=== PATIENT | male | born 1980 | race Asian ===

== ENCOUNTER → 2022-05-01 | Outpatient (CLI) | payer SELFPAY | END | disposition short-term general hospital (02) | LOC: EMS 11:14 | DX: R53.1 Weakness (principal); R47.02 Dysphasia; R11.2 Nausea with vomiting, unspecified; R51.9 Headache, unspecified; H53.8 Other visual disturbances; R07.9 Chest pain, unspecified; Z91.81 History of falling | CPT/HCPCS: A0425; A0427 ==